=== PATIENT | female | born 1995 | race African-American/Black ===

== ENCOUNTER 2023-07-06 10:22 | Emergency (ER) | payer OTHER, SELFPAY ==
--- NOTE | ~2023-07-06 | XR_ITS ---
EXAMINATION: XR chest 2V 07/06/2023 12:18 INDICATION: Shortness of breath PROCEDURE: 2 view chest COMPARISON: No prior studies for comparison. FINDINGS: The lungs are clear. The cardiomediastinal silhouette is within normal limits. There are no pleural effusions. There is no pneumothorax suspected. IMPRESSION: 1: NO ACUTE CARDIOPULMONARY DISEASE. Reviewed, dictated and finalized at location L. MANAGER CPA
[2023-07-06 11:15] VITALS: BP 117/69; PULSE 85; RESP 18; TEMP 36.6; O2SAT 100
--- NOTE | 2023-07-06 11:21 | ECG_ITS ---
Measurements Intervals [place] Rate: 70 P: 57 NV: 122 QRS: -20 QRSD: 88 T: 34 QT: 393 QTc: 424 Interpretive Statements SINUS RHYTHM INCOMPLETE RIGHT BUNDLE BRANCH BLOCK BASELINE ARTIFACT- I, II, AVR, AVL, AVF, V3-V4, V6 BORDERLINE ECG NO PREVIOUS ECG AVAILABLE FOR COMPARISON Electronically Signed On 07-06-2023 12:54:35 LABOR GANG SUPERVISOR by Gilmer Cuba D.O.
--- NOTE | 2023-07-06 11:21 | ED.SOB ---
HPI - SOB/Dyspnea General Chief Complaint: Shortness of Breath/Dyspnea <Liz Burch PA-C - Last Filed: 07/07/23 14:59> Stated Complaint: diff breathing <Liz Burch PA-C - Last Filed: 07/07/23 14:59> Time Seen by Provider: 07/06/23 11:21 <Liz Burch PA-C - Last Filed: 07/07/23 14:59> Source: patient <Marsha Galan MD - Last Filed: 07/07/23 11:06> Mode of arrival: ambulatory <Marsha Galan MD - Last Filed: 07/07/23 11:06> Limitations: no limitations <Marsha Galan MD - Last Filed: 07/07/23 11:06> History of Present Illness HPI Narrative: Focused HPI: This is a 27-year-old female that presents to the emergency department for difficulty breathing. Ongoing over the last week. Associated with tightness in her chest. Denies fevers or cough. GENERAL: Well-appearing, well-nourished, and in no acute distress. HEAD: Normocephalic, atraumatic. CHEST: Clear to auscultation. No respiratory distress. HEART: Regular rate and rhythm. NEURO: Alert and oriented x3. Patient screened in triage and initial orders placed. Additional care and disposition to be based upon diagnostic testing and treatment. <Liz Burch PA-C - Last Filed: 07/07/23 14:59> Focused HPI: This is a 27-year-old female that presents to the emergency department for difficulty breathing. Ongoing over the last week. Associated with tightness in her chest. Denies fevers or cough. GENERAL: Well-appearing, well-nourished, and in no acute distress. HEAD: Normocephalic, atraumatic. CHEST: Clear to auscultation. No respiratory distress. HEART: Regular rate and rhythm. NEURO: Alert and oriented x3. Patient screened in triage and initial orders placed. Additional care and disposition to be based upon diagnostic testing and treatment. Concur with history obtained in triage by ESTEFANI. Patient states these episodes have been occuring intermittently daily for the past week. Last 30-45 minutes. Once occcurred in the middle of the night but otherwise has not found sensation between time of day or any other identifiable triggers as as they occur at rest times with mild exertion. Notes family hx asthma but no personal diagnosis. Nexplanon control. No leg swelling, recent travel. No cough or hemoptysis. No recent surgery or immobilization. Will occcasionally think she hears a wheeze when laughing but not otherwise. Today's episode occurred spontaneously and acutely while she was talking with someone at work. Denies feeling particularly anxious about the conversation but her CARROL led her to feel like she was having a panic attack which is why she presents today. Denies sore throat but does appreciate unilateral tonsillar swelling, present chronically for years. Also notes occasional mucosal bleeding (has had two episodes while brushing teeth). <Marsha Galan MD - Last Filed: 07/07/23 11:06> Review of Systems Review of Systems: CONSTITUTIONAL: Denies fever ENT: Denies rhinorrhea, congestion CARDIOVASCULAR: Denies chest pain RESPIRATORY: Reports dyspnea. PSYCHIATRIC: Reports anxiety <Liz Burch PA-C - Last Filed: 07/07/23 14:59> All systems reviewed & are unremarkable except as noted in HPI and below <Liz Burch PA-C - Last Filed: 07/07/23 14:59> [facility] Past Medical History Medical History: Medical History (Updated 07/07/23 @ 14:59 by Liz Burch PA-C) No active medical problems <Liz Burch PA-C - Last Filed: 07/07/23 14:59> Family History Family History: Family History (Updated 07/07/23 @ 11:00 by Marsha Galan MD) Father Asthma Grandparent Asthma <Liz Burch PA-C - Last Filed: 07/07/23 14:59> Social History Social History: Social History (Updated 07/07/23 @ 11:48 by Liz Burch PA-C) Substance use: never <Liz Burch PA-C - Last Filed: 07/07/23 14:59> Exam Const: General: healthy appearing, no
[2023-07-06 12:54] LABS: Basophils Percent Auto 0.7 % (0.2-1.2); Eosinophils Absolute Auto 0.1 K/mm3 (0-0.3); Eosinophils Percent Auto 1.3 % (0-4.4); Hematocrit 38.7 % (37.0-47.0); Hemoglobin 12.2 g/dL (12.0-15.0); Immature Granulocyte Absolute 0.01 K/mm3 (0.00-0.031); Immature Granulocyte Percent A 0.2 % (0-0.5); Lymphocytes Absolute Auto 1.87 K/mm3 (0.9-3.2); Mean Corpuscular HGB Conc 31.5 g/dl (32-36); Mean Corpuscular Hemoglobin 27.5 pg (26-34); Mean Corpuscular Volume 87.4 fl (80-100); Mean Platelet Volume 8.3 fl (7.4-10.4); Monocytes Absolute Auto 0.4 K/mm3 (0.1-0.6); Monocytes Percent Auto 9.4 % (2.6-8.5); Neutrophils Absolute Auto 2.2 K/mm3 (1.3-6.7); Neutrophils Percent Auto 47.4 % (45.5-73.1); Platelet Count Result 332 k/mm3 (150-375); Red Blood Count 4.43 M/mm3 (4.2-5.4); Red Cell Distribution Width 11.9 % (11.5-14.5); White Blood Count 4.6 K/mm3 (4.5-10.0)
[2023-07-06 13:04] LABS: Prothrombin Time 13.9 Seconds (11.1-14.7)
[2023-07-06 13:05] LABS: Alanine Aminotransferase 17 U/L (6-35); Albumin Level 4.7 g/dL (3.5-5.1); Alkaline Phosphatase 75 U/L (38-126); Anion Gap 9 mmol/L (8-16); Aspartate Amino Transferase 28 U/L (14-36); Bilirubin,Total 1.1 mg/dL (0.2-1.3); Blood Urea Nitrogen 11 mg/dL (7-17); Calcium 9.5 mg/dL (8.4-10.2); Carbon Dioxide 25 mmol/L (22-30); Chloride 105 mmol/L (98-107); Estimated CRCL calculation 101 ml/min; Estimated Glomerular Filt Rate > 60; Glucose 88 mg/dL (65-110); Lipase 79 U/L (23-300); Partial Thromboplastin Time 27.3 SECONDS (22.3-36.8); Potassium 3.6 mmol/L (3.4-5.0); Sodium 139 mmol/L (137-145)
[2023-07-06 13:17] LABS: Troponin I < 0.012 ng/mL (0.000-0.034)
[2023-07-06 14:03] VITALS: BP 114/73; PULSE 74; RESP 16; TEMP 36.4; O2SAT 95
[2023-07-06 15:33] LABS: D Dimer 0.28 ug/mL (<0.48)
[2023-07-06 15:37] LABS: Influenza A QL RT-PCR Negative (Negative); Influenza B QL RT-PCR Negative (Negative); RSV RNA, RT-PCR Negative (Negative); SARS-CoV-2 RNA PCR Negative (Negative)
== END 2023-07-06 16:39 | disposition home or self-care (01) ==
PROVIDERS: Physician Assistant; Emergency Provider Student in an Organized Health Care Education/Training Program
DX: R06.00 Dyspnea, unspecified (principal); Z20.822 Contact with and (suspected) exposure to COVID-19; I45.10 Unspecified right bundle-branch block
CPT/HCPCS: 36415; 71046; 80053; 83690; 84484; 85025; 85380; 85610; 85730; 87637; 93005; 99284

== ENCOUNTER 2024-05-28 13:04 | Emergency (ER) | payer SELFPAY ==
[2024-05-28 13:12] VITALS: BP 121/75; PULSE 65; RESP 20; TEMP 36.6; O2SAT 100
--- NOTE | 2024-05-28 15:30 | ED_ITS ---
HPI - Skin/Abscess/Foreign Bdy General Chief complaint: Skin/Abscess/Foreign Body Stated complaint: bumps on my neck that appear once a year Time Seen by Provider: 05/28/24 14:30 History of Present Illness HPI narrative: Patient is a 28-year-old female who presents to the ER with the hives her left neck. She reports lesion number been going on for approximately 2 years. The spots started yesterday. She reports the spots are itchy but not painful. Patient cannot identify any new detergents, lotions, soaps. She denies any recent fevers, shortness of breath, neck swelling. Patient denies any pertinent medical history related to this ER visit. Related Data Allergies Allergy/AdvReac Type Severity Reaction Status Date / Time No Known Allergies Allergy Verified 05/28/24 14:31 Review of Systems Review of Systems: All systems reviewed & are unremarkable except as noted in HPI and below PMFSH Past Medical History Medical History No active medical problems Family History Family History Father Asthma Grandparent Asthma Social History Social History Substance use: never Exam Narrative: GENERAL: Well appearing, well-nourished, non-toxic, in no acute distress. HEAD: Normocephalic, atraumatic. NECK: Supple. No adenopathy, no masses. Four small hives on pt's L neck that have pinpoint raised lesions. RESPIRATORY: Airway patent, respirations nonlabored. Clear to auscultation bilaterally, no rales, rhonchi, wheezing. CARDIOVASCULAR: Regular rate and rhythm without murmurs, rubs, or gallops. Peripheral pulses 2+ and equal bilaterally. ABDOMINAL: Soft, nontender, nondistended, no hepatosplenomegaly. Normoactive BS. MUSCULOSKELETAL: Moves all extremities. Strength/ROM intact without gross deformities. SKIN: Warm, dry, normal color. No rashes. NEURO: A&O X3. Speech clear. Cranial nerves II-XII grossly intact. Steady gait. No ataxic movements. PSYCHIATRIC: Appropriate mood and affect. Normal interaction. Course Vital Signs Vital signs: Vital Signs Temperature 36.6 C 05/28/24 13:12 Pulse Rate 65 05/28/24 13:12 Respiratory Rate 20 05/28/24 13:12 Blood Pressure 121/75 05/28/24 13:12 Pulse Oximetry 100 05/28/24 13:12 Oxygen Delivery Room Air 05/28/24 13:12 Temperature 36.6 C 05/28/24 13:12 Pulse Rate 65 05/28/24 13:12 Respiratory Rate 20 05/28/24 13:12 Blood Pressure 121/75 05/28/24 13:12 Pulse Oximetry 100 05/28/24 13:12 Oxygen Delivery Room Air 05/28/24 13:12 MDM - Skin/Abscess/Foreign Bdy MDM Narrative Medical decision making narrative: Patient is a 28-year-old female who presents to the ER with the hives her left neck. She reports lesion number been going on for approximately 2 years. The spots started yesterday. She reports the spots are itchy but not painful. Patient cannot identify any new detergents, lotions, soaps. She denies any recent fevers, shortness of breath, neck swelling. Patient denies any pertinent medical history related to this ER visit. Labs Ordered: None needed Imaging Ordered:None needed Results: Hives Diagnosis: Urticaria Patient Education/Shared MDM: Results of exam shared with patient. She will be given an oral steroid and oral Benadryl here in the ER. Patient will be discharged with a Medrol Dosepak and hydrocortisone cream. She was advised to follow-up with her primary care provider as soon as possible and an telecom specialist. Patient advised to return to ER immediately if she starts experiencing shortness of breath, wheezing, neck swelling. Patient is in agreement with current treatment plan. All questions answered. Vital signs stable at time of discharge. Differential Diagnosis Differential diagnosis: Likely viral exanthem, urticaria, cellulitis, eczema and contact dermatitis Discharge Plan Discharge Clinical Impression: Urticaria Patient Disposition: Home, Self-Care Condition: Stable Instructions: Antibiotic Form, Urticaria (ED) Additional Instructions: Please return to the ER with an worsening symptoms. Follow-up with primary care provider in the next 2-3 days. Take all medications as prescribed. Patient Language: [place] Citizen Follow-up/Referrals: PHYSICIAN,FURNITURE DUSTER [Primary Care Provider] -
[2024-05-28] MEDS: predniSONE 20 MG TABLET 40 MG PO (15:38)
[2024-05-28 15:39] VITALS: BP 107/68; PULSE 63; RESP 15; O2SAT 98
[2024-05-28] MEDS: diphenhydrAMINE HCl CAP 25 MG CAPSULE PO (15:39)
--- OUTSIDE RECORDS SUMMARY | 2024-06-02 06:09 | XMS_ITS | Encounter Summary ---
Author Organization [facility] Address [address] [place] [address]. [place] [address] [place] [address] Care Team Providers Care Collar Baster Jumpbasting Name Role Phone None, Provider Primary Care Provider Obinna graham Encounter Details Date Type Department Care Team (Late st Contact Info) Description 12/04/2018 Hospital Follow-up Call [facility] [place], [place] [id number] Crystal Blue RN Social History Tobacco Use Types Packs/Day Years Used Date Smoking Tobacco: Never Smokeless Tobacco: Never Alcohol Use Standard Drinks/Week Comments No 0 (1 standard drink = 0.6 oz pur e alcohol) AUDIT-C Answer Date Recorded Frequency of Alcohol Consumption Never 06/08/2018 Average Number of Drinks Not on file 018 Frequency of Binge Drinking Not on file 05/15 Comments No Sex and Gender Information Value Date Recorded Sex Assigned at Not on file 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 Answer Date of Assessment Author Status No 11/13/2018 11:55 PM CDT Acti ve * Do you have serious difficulty walking or climbing stairs? Answer Date of Assessment Author Status No 11/13/2018 11:55 PM BENNETTT Mónica Nicole RN Active * Do you have difficulty dressing or bathing? Answer Date of Assessment Author Status No 11/13/2018 11:55 PM Mónica Terry RN Active * Because of a physical, mental, or emotional condition, do you have difficulty doing errands alone such as visiting a doctor's office or shopping? Answer Date of Assessment Author Status No 11/13/2018 11:55 PM Mónica Terry RN Active documented as of this encounter Mental Status * Because of a physical, mental, or emotional condition, do you have serious difficulty concentrating, remembering, or making decisions? Answer Entry Date Author Status No 11/13/2018 11:55 PM Mónica Terry RN Active documented in this encounter Plan of Treatment Not on file documented as of this encounter Visit Diagnoses Not on filedocumented in this encounter Care Teams Collar Baster Jumpbasting Relationship Specialty Start Date End Date None, Provider, PCP - General 06/08/18 documented as of this encounter
--- OUTSIDE RECORDS SUMMARY | 2024-06-02 06:09 | XMS_ITS | Clinical Summary ---
Author Organization [facility] Address [address] [place] [address]. [place] [address] [place] [address] Care Team Providers Care Structural Steel Worker Helper Name Role Phone None, Provider MD Primary Care Provider Unavaila ble Allergies No known active allergies Medications vitamin, low iron, ( VITAMIN WITH IRON) 27-0.8 MG tablet Take 1 tablet by mouth daily. Active ferrous sulfate EC 324 (65 Fe) MG tablet Take 1 tablet (324 mg total) by mouth 2 (two) times daily with meals. 60 tablet 2 11/16/2018 Active methylergonovine (METHERGINE) 0.2 MG tablet Take 1 tablet (0.2 mg total) by mouth every 6 (six) hours. 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 Gender Identity Not on file Sexual Orientation Not on file Last Filed Vital Signs Vital Sign Reading Time Taken Comments Blood Pressure 100/58 12/21/2018 5:40 PM CDT Pulse 63 12/21/2018 5:40 PM CDT Temperature 36.6 ??C (97.8 ??F) 12/21/2018 11:52 AM C DT Respiratory Rate 20 12/21/2018 5:40 PM CDT Oxygen Saturation 99% 12/21/2018 5:40 PM CDT Inhaled Oxygen Concentration - - Weight 49.9 kg (110 lb) 12/21/2018 11:52 AM CDT Height 157.5 cm (5' 2 ) 12/21/2018 11:52 AM CDT Body Mass Index 20.12 12/21/2018 11:52 AM CDT Plan of Treatment Health Maintenance Due Date Last Done Comments Cervical Cancer Screening Pa p Smear (Age 21 to 29) Every 3 Years 1997 Cervical Cancer Screening 1997 Annual Physical 2000 HPV Vaccines (1 - 3-dose series) 2012 Hepatitis C 10/19/2015 Hepatitis B Vaccines (1 of 3 - 19+ 3-dose series) 2016 COVID-19 Vaccine ( - 2023-2 5 season) 2024 Influenza Adult (#1) 2024 DTaP, Tdap and Td Vaccines ( 2 - Td or Tdap) 09/27/2027 09/26/2017 Meningococcal Vaccine Aged Out No tasha jocy eligible based on patient's age to complete this topic Pneumococcal Vaccine: Pediat rics (0 to 5 Years) and At-Risk Patients (6 to 64 Years) Aged Out No longer eligi ble based on patient's age to complete this topic RSV Immunizations Under 20 Months Aged Out No longer eligible based on patient's age to complete this topic Insurance Care Teams Structural Steel Worker Helper Relationship Specialty Start Date End Date None, Provider, PCP - General 06/08/18
--- OUTSIDE RECORDS SUMMARY | 2024-06-02 06:09 | XMS_ITS | Encounter Summary ---
Author Organization [facility] Address [address] [place] [address]. [place] [address] [place] [address] Care Team Providers Care Restaurant Lead Name Role Phone None, Provider MD Primary Care Provider Unavaila ble Reason for Visit * Auth/Cert Specialty Diagnoses / Procedures Referred By Dakota salazar Referred To Contact Diagnoses Procedures INPT Referral ID Status Reason Start Date Expiration Date Visits Re quested Visits Authorized [id number] 1 1 Encounter Details Date Type Department Care Team (Late Contact Info) Description 11/14/2018 2:12 AM CDT Anesthesia Event [facility] Labor & Delivery ONE [facility] [place] [address] Matt Dorsey CRNA [address] [facility] [address] [address] Anesthesia Record Procedure Summary Procedure Name Responsible Anesthesiologist Anesthesia Start Time Anesthesia Stop Time LABOR EPIDURAL Events Date Time Event Comment 11/14/2018 0213 0213 AN AQUATIC PERFORMER Prepped 0219 Floor Procedure 022 Epidural Start 618 An Epidural Placement Comple te Meds Name Total lidocaine (PF) 1% injection 30 mg lidocaine 2%-EPINEPHrine 1:200,000 injec tion 3 mL fentaNYL (SUBLIMAZE) 100 mcg/2 mL inject ion 100 mcg fentaNYL 2 mcg/mL-BUpivacaine 0.125 % ep idural 150 mL cassette 583,818.73 mL * Agents No agents on file. * Blood No blood administrations on file. 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 Gender Identity Not on file Sexual Orientation [...] PM BENNETTT Mónica Nicole RN Active * Because of a physical, [...] Terry RN Active documented in this encounter OR Notes * Anesthesia Postprocedure Evaluation - Greta Hodgson CRNA - 11/15/2018 8:28 AM CDT Anesthesia Post-op Note Socorro N Su Procedure(s): LABOR EPIDURAL Anesthesia type: epidural Vitals: 11/15/18745 BP: 98/56 Vitals: 11/15/18745 Pulse: 72 Vitals: 11/15/18745 Resp: 16 Vitals: 11/15/18745 Temp: 36.7 ??C Vitals: 11/15/18745 SpO2: 98% Patient Location: Inpatient Unit Level of Consciousness: awake, oriented and alert Pain Management: adequate analgesia Airway Patency: patent Respiratory Status: acceptable Cardiovascular Status: acceptable and stable Post-Op Nausea: none Postoperative Hydration: euvolemic Complications: no anesthesia complication Comments: Blood pressure 98/56, pulse 72, temperature 36.7 ??C, temperature source Oral, resp. rate16, height 5' 2 (1.575 m), weight 61.2 kg (135 lb), SpO2 98 %, unknown if currently . * Anesthesia Procedure Notes - Matt Dorsey CRNA - 11/14/2018 2:41 AM CDTAssociated Order(s): Labor Epidural Epidural: Date/Time: 11/14/2018 2:22 AM Patient location during procedure: OB Reason for block: procedure for pain and labor epidural Preanesthetic Checklist Completed: patient identified, consent, pre-op evaluation, timeout performed, IV checked, risks andbenefits discussed and monitors and equipment checked Procedure Information: Patient position: sitting Prep: Betadine and site prepped and draped Patient monitoring: continuous pulse oximetry, heart rate and non-invasive blood pressure Approach: midline Location: L3-L4 Injection technique: NELSON saline Placement Location: lumbar Ultrasound-guided Placement: No Needle and Catheter: MRI Compatible: B Castrejon Perifix tray Ref # [id number] Needle type: Tuohy Needle gauge: 17 G Needle length: 3.5 in Needle insertion depth: 5.5 cm Catheter type: side hole Catheter size: 19 G Catheter at skin depth: 11 cm Test dose: negative and lidocaine 1.5% with epinephrine 1-to-200,000 Needle attempts: 1 Assessment Sensory level: T8 Additional Notes Epidural placed as above, pt tolerated well. * Anesthesia Preprocedure Evaluation - Matt Dorsey CRNA - 11/14/2018 2:13 AM CDT Anesthesia ROS/MED History Reviewed: Patient summary , Nursing notes , Family history anesthesia, Anesthesia history , Medications , Labs , Unchecked boxes are not applicable Pre-Anesthetic State: responds appropriately, awake and alert Pulmonary neg pulmonary ROS Cardiovascular neg cardio ROS Exercise tolerance:good Neuro/Psych neg neuro/psych ROS GI/Hepatic/Renal neg GI/hepatic/renal ROS Endo/Other neg endo/other ROS GENERAL COMMENTS WBC (x10'3/uL) Date Value 11/13/2018 9.9 HGB (G/DL) Date Value 11/13/2018 10.9 PLT (x10'3/uL) Date Value 11/13/2018 327 Physical Evaluation Airway Mallampati: II TM Distance: >3 FB Neck ROM: normal Dental No notable dental history Pulmonary Pulmonary exam normal Cardiovascular Cardiovascular exam normal Anesthesia Plan ASA 2 Induction Anesthesia type: epidural Informed Consent Anesthetic plan and risks discussed with patient of whom consent was obtained. . documented in this encounter Plan of Treatment Not on file documented as of this encounter Procedures Procedure Name Priority Date/Time Associated Diagnosis Comments LABOR EPIDURAL Routine 11/14/2018 2:41 AM CDT Procedure Note - Matt Dorsey CRNA - 11/14/2018 2:41 AM CDTThis note is in progress. Epidural: Date/Time: 11/14/2018 2:22 AM Patient location during procedure: OB Reason for block: procedure for pain and labor epidural Preanesthetic Checklist Completed: patient identified, consent, pre-op evaluation, timeoutperformed, IV checked, risks and benefits discussed and monitors andequipment checked Procedure Information: Patient position: sitting Prep: Betadine and site prepped and draped Patient monitoring: continuous pulse oximetry, heart rate and non-invasiveblood pressure Approach: midline Location: L3-L4 Injection technique: NELSON saline Placement Location: lumbar Ultrasound-guided Placement: No Needle and Catheter: MRI Compatible: B Castrejon Perifix tray Ref # [id number] Needle type: Tuohy Needle gauge: 17 G Needle length: 3.5 in Needle insertion depth: 5.5 cm Catheter type: side hole Catheter size: 19 G Catheter at skin depth: 11 cm Test dose: negative and lidocaine 1.5% with epinephrine 1-to-200,000 Needle attempts: 1 Assessment Sensory level: T8 Additional Notes Epidural placed as above, pt tolerated well. documented in this encounter Visit Diagnoses Not on filedocumented in this encounter Administered Medications Inactive Administered Medications - up to 3 most recent administrations Medication Order MAR Action Action Date Dose Rate Site fentaNYL (SUBLIMAZE) injection PRN, Starting on Wed11/14/18 at 0232, Until Wed11/15/18 at 08, Anesthesia Intra-Op Given 11/14/2018 2:32 AM CDT 100 mcg fentaNYL 2 mcg/mL-bupivacaine 0.125 % 150 mL epidural Continuous PRN, Starting on Wed11/14/18 at 0235, Until Wed11/15/18 at 0829, Anesthesia Intra-Op Rate/Dose Change 11/14/2018 2:36 AM CDT 12 mL/hr 12 mL/hr New Bag 11/14/2018 2:35 AM CDT 5 mL/hr 5 mL/hr lidocaine (PF) (XYLOCAINE) 1 % injection PRN, Starting on Wed11/14/18 at 0224, Until Wed11/15/18 at 0829, Anesthesia Intra-Op Given 11/14/2018 2:24 AM CDT 30 mg lidocaine-EPINEPHrine 2 %-[id number] injection PRN, Starting on Wed11/14/18 at 0229, Until Wed11/15/18 at 0829, Anesthesia Intra-Op Given 11/14/2018 2:29 AM CDT 3 mLs documented in this encounter Care Teams Restaurant Lead Relationship Specialty Start Date End Date None, Provider, PCP - General 06/08/18 documented as of this encounter
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
--- OUTSIDE RECORDS SUMMARY | 2024-06-02 06:09 | XMS_ITS | Encounter Summary ---
Author Organization [facility] Address [address] [place] [address]. 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 Name Role Phone None, Provider Primary Care Provider Unavaila ble Reason for Visit * Reason Comments IOL-ELECTIVE * Auth/Cert Specialty Diagnoses / Procedures Referred By Dakota t Referred To Contact Diagnoses Procedures INPT Referral ID Status Reason Start Date Expiration Date Visits Re quested Visits Authorized [id number] 1 1 Encounter Details Date Type Department Care Team (Latest Contact Info) Description 11/13/2018 10:05 PM CDT - 11/16/2018 11:45 AM CDT Hospital Encounter [facility] [place], [place] [id number] Alexis Theodore MD [address] [place], [place] [id number] (IOL-ELECTIVE) Discharge Disposition: Home or Self Care (Routine [...] on file 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 Gender Identity Not on file Sexual Orientation Not on file documented as of this encounter Last Filed Vital Signs Vital Sign Reading Time Taken Comments Blood Pressure 100/64 11/16/2018 8:00 AM CDT Pulse 80 11/16/2018 8:00 AM CDT Temperature 37 ??C (98.6 ??F) 11/16/2018 8:00 AM CDT Respiratory Rate 18 11/16/2018 8:00 AM CDT Oxygen Saturation 98% 11/16/2018 8:00 AM CDT Inhaled Oxygen Concentration - - Weight 61.2 kg (135 lb) 11/13/2018 11:13 PM CDT Height 157.5 cm (5' 2 ) 11/13/2018 11:13 PM CDT Body Mass Index 24.69 11/13/2018 11:13 PM CDT documented in this encounter Functional Status * Question Answer Date of Assessment Author Status Do you have serious difficulty walking or climbing stairs? No 11/13/2018 11:55 PM Mónica Terry RN Active * Question Answer Date of Assessment Author Status Do you have difficulty dressing or bathing? No 11/13/2018 11:55 PM BENNETTT Jillian Nicole RN Active Because of a physical, mental, or emotional condition, do you have difficulty doing errands alone such as visiting a doctor's office or shopping? No 11/13/2018 11:55 PM Mónica Terry RN Active * RETIRED Are you deaf or do [...] 11:55 PM Mónica Terry RN Active * Do you have difficulty [...] as of this encounter Mental Status * Question Answer Entry Date Author Status Because of a physical, mental, or emotional condition, do you have serious difficulty concentrating, remembering, or making decisions? No 11/13/2018 11:55 PM Mónica Terry RN Active * Because of a physical, mental, or emotional condition, do you have serious difficulty concentrating, remembering, or making decisions? Answer Entry Date Author Status No 11/13/2018 11:55 PM Mónica Terry RN Active documented in this encounter Discharge Summaries * Maxine Caballero CNM - 11/16/2018 8:19 AM CDT Obstetrical Discharge Form Admit date: 11/13/2018 Admitting Physician: Alexis Theodore MD Indication for Admission: Patient was admitted for spontaneous labor. /Para: EDC: Estimated Date of Delivery: 11/15/18 Gestational Age:39w6d Antepartum complications: none Date of Delivery: 11/14/18 Time of Delivery: 618 Delivered By: Dr. Alexis Theodore Delivery Type: spontaneous vaginal delivery Anesthesia: epidural Intrapartum complications: None Laceration: 1st degree and 2nd degree Episiotomy: none, Placenta: spontaneous Hospital Course: Her postop course was uncomplicated. By PPD# 2 she was fully ambulatory, voiding without difficulty and her pain was controlled on po pain meds. She felt ready for discharge. Routinepo/pp precautions and instructions were reviewed and all questions answered to her satisfaction. Discharge Exam: Lungs: no respiratory distress Heart: RRR Abdomen: Tenderness:mild,Fundus: firm, 1 cm below umbilicus Extremities: nontender, no edema, Nina's sign: negative Perineum: Swelling: minimal, Sutures: intact Labs: Recent Labs Lab 11/13/18 2240 11/15/18 0436 WBC 9.9 12.8* HGB 10.9* 9.1* PLT 327 255 No results for input(s): K, CR, GLU, AST, ALT in the last 168 hours. Feeding method: bottle Blood Type: AB POSITIVE Rh Immune globulin given: not applicable Rubella vaccine given: not applicable Discharge Diagnoses: s/p spontaneous vaginal delivery Discharge Condition: Stable Discharge Date: 11/16/2018 Discharge Time: 8:19 AM Discharge Provider: MAXINE CABALLERO CNM Assessment/Plan: S/p spontaneous vaginal delivery. Discharge to home with . Follow-up appointment in 6 weeks. Instructed to return with heavy bleeding, severe pain, or fever. Discharge Meds: Medication List START taking these medications docusate sodium 100 MG capsule Commonly known as: COLACE Take 1 capsule (100 mg total) by mouth 2 (two) times daily for 10 days. ferrous sulfate EC 324 (65 Fe) MG tablet Take 1 tablet (324 mg total) by mouth 2 (two) times daily with meals. ibuprofen 600 MG tablet Commonly known as: MOTRIN Take 1 tablet (600 mg total) by mouth every 6 (six) hours as needed. CONTINUE taking these medications vitamin with iron 27-0.8 MG tablet Where to Get Your Medications These medications were sent to [facility] [address] [place] [address], [facility] [address] ?? docusate sodium 100 MG capsule ?? ferrous sulfate EC 324 (65 Fe) MG tablet ?? ibuprofen 600 MG tablet MAXINE CABALLERO CNM documented in this encounter Discharge Instructions * Attachments The following attachments cannot be sent through Care Everywhere. * Vaginal Delivery Discharge Instructions (Canadian) * What to Watch for After You Have a Baby (Canadian) documented in this encounter Medications at Time of Discharge ferrous sulfate EC 324 (65 Fe) MG tablet Take 1 tablet (324 mg total) by mouth 2 (two) times daily with meals. 60 tablet 2 11/16/2018 vitamin, low iron, ( VITAMIN WITH IRON) 27-0.8 MG tablet Take 1 tablet by mouth daily. docusate sodium 100 MG capsule Take 1 capsule (100 mg total) by mouth 2 (two) times daily for 10 days. 20 capsule 11/16/2018 11/26/2018 ibuprofen 600 MG tablet Take 1 tablet (600 mg total) by mouth every 6 (six) hours as needed. 40 tablet 11/16/2018 11/26/2018 documented as of this encounter Progress Notes * Vin Downs MD - 11/15/2018 8:40 AM CDT Subjective: Patient is doing well. Pain well controlled on PO meds. Ambulating and voiding well. Normal lochia.Switched from to bottle feeding, infant is doing well, denies any concerns at this time. Objective: Filed Vitals: 11/14/18 1000 11/14/18 1015 11/14/18 1905 11/15/18 0746 BP: 104/61 101/62 98/56 Pulse: 88 80 72 Resp: 18 16 16 Temp: 98.2 ??F (36.8 ??C) 98.2 ??F (36.8 ??C) 98 ??F (36.7 ??C) TempSrc: Oral Oral Oral SpO2: 97% 98% Weight: Height: No intake or output data in the 24 hours ending 11/15/18 0841 Lungs: no respiratory distress Heart: RRR Abdomen: Tenderness:mild,Fundus: firm, 1 cm below umbilicus Extremities: nontender, no edema, Nina's sign: negative Perineum: Swelling: minimal, Sutures: intact Recent Labs Lab 11/13/18 2240 11/15/18 0436 HGB 10.9* 9.1* No results for input(s): NA, K, CL, CO2, AGAP, BUN, CR, BUNCREATININ, GFRNON, GFR, GLU, CA, TP, ALB, TBIL, ALKP, AST, ALT in the last 168 hours. A/P: PPD# 1 s/p vaginal delivery. Stable Routine care Anemia- started on ferrous sulfate Reviewed delivery course and answered questions. Precautions reviewed re: headache, bleeding, depression, etc. Anticipate discharge tomorrow agree * Rosario Sheehan RN - 11/14/2018 2:35 PM CDT 1435- CLC IN FOR ROUNDS. MOTHER STATES SHE DESIRES TO FORMULA FEED INFANT INSTEAD OF . STATES ONLY WANTED TO GIVE INFANT A LITTLE COLOSTRUM AND THEN BOTTLE FEED. 1455- BOTTLES AND NIPPLES GIVEN WITH INSTRUCTION ON USE.1500- MOTHER HOLDING AND BOTTLEFEEDING documented in this encounter H&P Notes * Alexis Theodore MD - 11/13/2018 12:00 AM CDT CHIEF COMPLAINT: Term , contractions. HISTORY OF PRESENT ILLNESS: The patient is a 23-year-old G1 [facility] and presents with complaints of cramping and contractions. She is at 39 weeks. She has anAV positive blood type. Her care was uneventful. Her 28-week 1-hour glucose screen was 103. There was an echogenic intracardiac focus on one of her ultrasounds, but her QNatal test was low risk. PAST MEDICAL HISTORY: No previous history of diabetes or hypertension. ALLERGIES: NO KNOWN DRUG ALLERGIES. MEDICATIONS: Vitamins. PAST SURGICAL HISTORY: None. FAMILY HISTORY: Noncontributory. PHYSICAL EXAMINATION: Normocephalic, atraumatic. Vital signs stable. Chest: Clear to auscultation. Cardiovascular: Regular rate and rhythm without murmur. Abdomen: Soft, gravid, nontender. Lower extremities are nontender. Trace edema. Cervical exam upon initial presentation 3-4 cm dilated. IMPRESSION: Intrauterine at 39 weeks, appears to be going into labor. We will allow laterto progress and hope for vaginal delivery. #[id number] /NTS documented in this encounter Procedure Notes * Alexis Theodore MD - 11/14/2018 12:00 AM CDT The patient is a 23-year-old G1, now P1, who presented with term induction at 39 weeks. [facility] [place] [facility] at approximately 10:00 p.m. on 11/13 and was already found to be contraction. Therefore, no induction was performed. No Pitocin was given. No Cytotec was given. The patient was expectantly managed. Upon initial arrival, she was 3-4 cm dilated. She then continued overnight. She continued to make progress in labor. She had spontaneous rupture of membranes at 1:35 a.m. She then ultimately dilated to complete and started pushing efforts at 5:45 a.m. With me in attendance, she brought the baby's head to her crown and delivered by normal spontaneous vertex vaginal delivery of a viable male infant with good tone and cry at the time of delivery with delivery time at 6:19 a.m. Following delivery of the head, a loose nuchal cord was present. This was easily reduced. Each shoulder came easily and no shoulder dystocia was encountered. The baby was wiped off. The mouth was suctioned. One minute was allowed to pass. The cord was then clamped x2 and cut by relative. Routine cord blood was obtained. Cord blood gases were obtained. The cord was then drained the bladder and with gentle traction, the placenta was delivered with all membranes intact. The uterus firmedup nicely following delivery. I should note that the patient did receive 2 doses of Penicillin durin g her labor due to positive group B strep status. Inspection of the perineum showed 2 first-degree lacerations at 10 and 2 o'clock. These were each reapproximated using a 3-0 Vicryl Rapide sutures interrupted. A thin small second-degree laceration was present at 05:00. This was reapproximated in a s tandard fashion in 2 layers with 2-0 Vicryl Rapide. Mother and baby following delivery doing well. Estimated blood loss in delivery 300 mL. #[id number] /NTS documented in this encounter Plan of Treatment Not on file documented as of this encounter Procedures Procedure Name Priority Date/Time Associated Diagnosis Comments CBC W/DIFF AUTOMATED Routine 11/15/2018 4:36 AM CDT TYPE & SCREEN STAT 11/13/2018 10:42 PM CDT CBC W/DIFF AUTOMATED STAT 11/13/2018 10:40 PM CDT URINALYSIS WI REFLEX TO CULTURE Routine 11/13/2018 10:30 PM CDT DRUG SCREEN RAPID STAT 11/13/2018 10: 30 PM CDT URINE BACTERIA CULTURE Routine 11/13/2018 10:30 PM CDT OBSTETRIC PANEL Routine 11/13/2018 HIV 1 ANTIGEN(S), WITH HIV-1 AND HIV-2 ANTIBODIES Routine 08/24/2018 OBSTETRIC PANEL Routine 08/24/2018 HIV 1 ANTIGEN(S), WITH HIV-1 AND HIV-2 ANTIBODIES Routine 05/11/2018 OBSTETRIC PANEL Routine 05/11/2018 documented in this encounter Results * (ABNORMAL) CBC W/DIFF AUTOMATED (11/15/2018 4:36 AM CDT) WBC 12.8(H) 4.5 - 11.0 x10'3/uL 11/15/2018 6:41 AM CDT [facility] RBC 3.29(L) 4.20 - 5.40 x10'6/uL 11/15/2018 6:41 AM CDT [facility] HGB 9.1(L) 12.0 - 16.0 G/DL 11/15/2018 6:41 AM CDT [facility] HCT 29.4(L) 38.0 - 48.0 % 11/15/2018 6:41 AM CDT [facility] MCV 89.4 80.0 - 94.0 FL 11/15/2018 6:41 AM CDT [facility] MCH 27.7 27.0 - 31.0 PG 11/15/2018 6:41 AM CDT [facility] MCHC 31.0(L) 32.0 - 36.0 G/DL 11/15/2018 6:41 AM CDT [facility] RDW 13.2 11.5 - 14.5 % 11/15/2018 6:41 AM CDT [facility] PLT 255 130 - 400 x10'3/uL 11/15/2018 6:41 AM T [facility] MPV 9.0(L) 9.3 - 12.2 FL 11/15/2018 6:41 AM T [facility] DIFFERENTIAL TYPE MANUAL DIFFERENTIAL 11/15/2018 7:57 AM CDT [facility] SEG NEUTROPHILS 70 % 9 7:57 AM CDT [facility] LYMPHOCYTES 17 % 11/15/2018 7:57 AM T [facility] MONOCYTES 8 % 11/15/2018 7:57 AM T [facility] EOSINOPHILS 3 % 11/15/2018 7:57 AM CDT [facility] BANDS 1 % 11/15/2018 7:57 AM CDT [facility] MYELOCYTES 1 % 11/15/2018 7:57 AM T [facility] ABS. NEUTROPHILS CALCULATED 9.09(H) 1.80 - 7.70 x10'3/uL 11/15/2018 7:57 AM T [facility] ABS.LYMPHOCYTES CALCULATED 2.18 1.00 - 4.80 x10'3/uL 11/15/2018 7:57 AM CDT [facility] ABS. MONOCYTES CALCULATED 1.02(H) 0.24 - 0.86 x10'3/uL 11/15/2018 7:57 AM CDT [facility] ABS. EOSINOPHIL CALCULATED 0.38(H) 0.04 - 0.36 x10'3/uL 11/15/2018 7:57 AM T [facility] ABS. MYELOCYTES 0.13(H) 0.00 x10'3/uL 11/15/2018 7:57 AM CDT [facility] RBC MORPHOLOGY RBC MORPHOLOGY APPEARS NORMAL. SLIDE REVIEWED. 11/15/2018 7:57 AM CDT [facility] PLT EST. ADEQUATE 11/15/2018 7:57 AM CDT [facility] 11/15/2018 4:36 AM CDT us Alexis Theodore MD LABORATORY Final Result Performing Organization Address [facility] Co de Phone Number [facility] [address] [place] [address], [place] [phone] * TYPE & SCREEN (11/13/2018 10:42 PM CDT) ABO/RH AB POSITIVE 11/13/2018 11:56 PM CDT [facility] ANTIBODY SCREEN NEGATIVE 11/13/2018 11:56 PM CDT [facility] SAMPLE EXPIRATION 11/16/2018 11/13/2018 11:56 PM CDT [facility] 11/13/2018 10:4 2 PM CDT us Alexis Theodore MD BLOOD BANK TEST ORDERABLES Fi nal Result Performing Organization Address City/[facility]/ZIP Co de Phone Number [facility] [address] [place] [address], [place] [phone] * (ABNORMAL) CBC W/DIFF AUTOMATED (11/13/2018 10:40 PM CDT) WBC 9.9 4.5 - 11.0 x10'3/uL 11/13/2018 11:04 PM CDT [facility] RBC 3.85(L) 4.20 - 5.40 x10'6/uL 11/13/2018 11:04 PM CDT [facility] HGB 10.9(L) 12.0 - 16.0 G/DL 11/13/2018 11:04 PM CDT [facility] HCT 33.9(L) 38.0 - 48.0 % 11/13/2018 11:04 PM CDT [facility] MCV 88.1 81.0 - 99.0 FL 11/13/2018 11:04 PM CDT [facility] MCH 28.3 27.0 - 31.0 PG 11/13/2018 11:04 PM CDT [facility] MCHC 32.2 32.0 - 36.0 G/DL 11/13/2018 11:04 PM CDT [facility] RDW 13.1 11.5 - 14.5 % 11/13/2018 11:04 PM CDT [facility] PLT 327 130 - 400 x10'3/uL 11/13/2018 11:04 PM CDT [facility] MPV 8.8(L) 9.3 - 12.2 FL 11/13/2018 11:04 PM CDT [facility] DIFFERENTIAL TYPE AUTOMATED DIFFERENTIAL 11/13/2018 11:04 PM CDT [facility] NEUTROPHILS % 63.6 % 11/13/2018 11:04 PM CDT [facility] LYMPHOCYTES % 18.6 % 11/13/2018 11:04 PM CDT [facility] MONOCYTES % 13.1 % 11/13/2018 11:04 PM CDT [facility] EOSINOPHILS 0.5 % 11/13/2018 11:04 PM CDT [facility] BASOPHILS 0.5 % 11/13/2018 11:04 PM CDT [facility] IMMATURE GRANS % 3.7 % 11/14/19 11:04 PM CDT [facility] ABS. NEUTROPHILS TOTAL 6.28 1.80 - 7.70 x10'3/uL 11/13/2018 11:04 PM CDT [facility] ABS. LYMPHOCYTES 1.84 1.00 - 4.80 x10'3/uL 11/13/2018 11:04 PM CDT [facility] ABS. MONOCYTES 1.29(H) 0.24 - 0.86 x10'3/uL 11/13/2018 11:04 PM CDT [facility] ABS. EOSINOPHILS 0.05 0.04 - 0.36 x10'3/uL 11/13/2018 11:04 PM CDT [facility] ABS. BASOPHILS 0.05 0.01 - 0.08 x10'3/uL 11/13/2018 11:04 PM CDT [facility] ABS. IMMATURE GRANULOCYTES 0.37 0.00 - 0.49 x10'3/uL 11/13/2018 11:04 PM CDT [facility] 11/13/2018 10:4 0 PM CDT us Alexis Theodore MD LABORATORY Final Result [facility] [address] [place] [address], * CULTURE URINE (11/13/2018 10:30 PM CDT) SPEC DESCRIPTION URINE CLEAN CATCH 11/13/2018 11:12 PM CDT [facility] SPECIAL REQUESTS NO SPECIAL REQUEST 11/13/2018 11:12 PM CDT [facility] CULTURE RESULT POLYMICROBIAL GROWTH CONSISTENT WITH NORMAL GENITAL FLORESITA. ?? SUSCEPTIBILITIES NOT ROUTINELY PERFORMED. 11/15/2018 11:15 AM CDT [facility] URINE SPECIMEN OBTAINED BY CLEAN CATCH PROCEDURE / Unknown 11/13/2018 10:30 PM CDT 11/13/2018 11:11 PM CDT Alexis Theodore MD MICROBIOLOGY - GENERAL ORDERA BLES Final Result [facility] [address] [place] [address], [place] [phone] * (ABNORMAL) URINALYSIS WI REFLEX TO CULTURE (11/13/2018 10:30 PM CDT) SPECIMEN TYPE URINE CLEAN CATCH 11/13/2018 10:44 PM CDT [facility] COLOR (U) YELLOW 11/13/2018 11:11 PM CDT [facility] TRANSPARENCY CLOUDY 11/13/2018 11:11 PM CDT [facility] SPECIFIC GRAVITY (U) 1.016 1.001 - 1.030 11/13/2018 11:11 PM CDT [facility] U PH 7.0 5.0 - 9.0 11/13/2018 11:11 PM CDT [facility] LEUKOCYTES (U) TRACE(A) NEGATIVE 11/13/2018 11:11 PM CDT [facility] NITRITES NEGATIVE NEGATIVE 11/13/2018 11:11 PM CDT [facility] PROTEIN (U) NEGATIVE <30 MG/DL 11/13/2018 11:11 PM CDT [facility] URINE GLUCOSE NEGATIVE NEGATIVE MG/DL 11/13/2018 11:11 PM CDT [facility] KETONES MG/DL (U) NEGATIVE NEGATIVE MG/DL 11/13/2018 11:11 PM CDT [facility] UROBILINOGEN 4.0(A) NEGATIVE MG/DL 11/13/2018 11:11 PM CDT [facility] BILIRUBIN (U) NEGATIVE NEGATIVE MG/DL 11/13/2018 11:11 PM CDT [facility] BLOOD (U) NEGATIVE NEGATIVE 11/13/2018 11:11 PM CDT [facility] CULTURE & SENSITIVITY INDICATED? SPECIMEN SETUP FOR CULTURE 11/13/2018 11:11 PM CDT [facility] SQUAMOUS EPITHELIALS MANY /LPF 11/13/2018 11:11 PM CDT [facility] MUCUS RARE /LPF 11/13/2018 11:11 PM CDT [facility] WBC/HPF 1 <6 /HPF 11/13/2018 11:11 PM CDT [facility] RBC/HPF 2 <6 /HPF 11/13/2018 11:11 PM CDT [facility] URINE SPECIMEN OBTAINED BY CLEAN CATCH PROCEDURE / Unknown 11/13/2018 10:30 PM CDT us Alexis Theodore MD URINE ORDERABLES Final Result [facility] [address] [place] [address], * DRUG SCREEN RAPID (11/13/2018 10:30 PM CDT) AMPHETAMINE (U) NEGATIVE NEGATIVE 9 12:11 AM CDT [facility] BARBITURATES SCREEN (U) NEGATIVE NEGATIVE 11/14/2018 12:11 AM CDT [facility] BENZODIAZEPINES SCREEN (U) NEGATIVE NEGATIVE 11/14/2018 12:11 AM CDT [facility] CANNABINOIDS SCREEN (U) NEGATIVE NEGATIVE 11/14/2018 12:11 AM CDT [facility] COCAINE METABOLITES (U) NEGATIVE NEGATIVE 11/14/2018 12:11 AM CDT [facility] METHADONE (U) NEGATIVE NEGATIVE 11/14/2018 12:11 AM T [facility] OPIATE SCREEN (U) NEGATIVE NEGATIVE 019 12:11 AM T [facility] PHENCYCLIDINE PCP (U) NEGATIVE NEGATIVE 11/14/2018 12:11 AM T [facility] Comment: NOTE: RESULTS OF THIS DRUG SCREEN SHOULD BE USED FOR MEDICAL PURPOSES ONLY AND NOT FOR LEGAL OR EMPLOYMENT PURPOSES. POSITIVE RESULTS ARE NOT CONFIRMED. MEDICATIONS CONTAINING EPHEDRINE MAY CAUSE FALSE POSITIVE AMPHETAMINE CALL 2119, LAB, TO REQUEST CONFIRMATION TESTING. IF CREATININE IS <40 mg/dL. ??RECOLLECTION IS SUGGESTED. AMPHETAMINE- ?500 NG/ML BARBITURATE- ?200 NG/ML BENZODIAZEPINES- ??200 NG/ML THC- ? 50 NG/ML COCAINE- ?150 NG/ML METHADONE- ?300 NG/ML OPIATE- ? 300 MG/ML PCP- ? 25 NG/ML CREATININE (U) 111.0 28 - 217 MG/DL 11/14/2018 12:11 AM T [facility] Urine specimen (specimen) URINE SPECIMEN / Unknown 11/13/2018 10:30 PM CDT Alexis Theodore MD URINE ORDERABLES Final Result [facility] [address] [place] [address], * OBSTETRIC PANEL (11/13/2018) HEPATITIS B SURFACE AG NON-REACTI VE Doc [facility] Final Result * OBSTETRIC PANEL (08/24/2018) SYPHILIS IGG AB NON REACTIVE Comment:08/22/18 us Doc [facility] Final Result * HIV 1 ANTIGEN(S), WITH HIV-1 AND HIV-2 ANTIBODIES (08/24/2018) HIV 1/2 AB+ HIV1 P24 AG NON REACTIVE Comment:08/22/18 us Doc [facility] Final Result * OBSTETRIC PANEL (05/11/2018) Pathologist [facility] HGB 32.8 HCT 11.1 RUBELLA IGG AB IMMUNE SYPHILIS IGG AB NON-REACTIV E us Doc [facility] Final Result * HIV 1 ANTIGEN(S), WITH HIV-1 AND HIV-2 ANTIBODIES (05/11/2018) Pathologist [facility] HIV 1/2 AB+ HIV1 P24 AG NON-REACTI VE us Doc [facility] Final Result documented in this encounter Visit Diagnoses Diagnosis (HHS/HCC) state, incidental documented in this encounter Administered Medications Inactive Administered Medications - up to 3 most recent administrations Medication Order MAR Action Action Date Dose Rate Site acetaminophen (TYLENOL) tablet 650 mg 650 mg, Oral, Every 4 hours PRN, Mild pain (Scale 1 - 3), Starting on Wed11/14/18 at 1126, Until Wed11/16/18 at 1400, Administer as analgesic choice number 2 Given 11/14/2018 7:34 PM CDT 650 mg butorphanol (STADOL) injection 1 mg 1 mg, Intravenous, Every 4 hours PRN, Moderate pain (Scale 4 - 7), Starting on Wed11/13/18 at 2241, Until Wed11/14/18 at 1126 Given 11/14/2018 12:15 AM CDT 1 mg diphenhydrAMINE (BENADRYL) 12.5 MG/5ML elixir 25 mg 25 mg, Oral, Every 6 hours PRN, Itching, Starting on Wed11/14/18 at 1126, Until Wed11/16/18 at 1400, Give if unable to swallow tablets/capsules or if patient prefers liquid. diphenhydrAMINE (BENADRYL) capsule 25 mg 25 mg, Oral, Every 6 hours PRN, Itching, Starting on Wed11/14/18 at 1126, Until Wed11/16/18 at 1400 diphenhydrAMINE (BENADRYL) injection 25 mg 25 mg, Intravenous, Every 6 hours PRN, Itching, Starting on Wed11/14/18 at 1126, Until Wed11/16/18 at 1400, Give if unable to take PO. For IV administration, give no faster than 25 mg/min. docusate sodium (COLACE) capsule 100 mg 100 mg, Oral, 3 times daily with meals, First dose on Wed11/14/18 at 1200, Until Discontinued Given 11/16/2018 8:20 AM CDT 100 mg Given 11/15/2018 5:07 PM CDT 100 mg Given 11/15/2018 7:45 AM CDT 100 mg ferrous sulfate EC tablet 324 mg 324 mg, Oral, 2 times daily with meals, First dose on Wed11/15/18 at 1700, Until Discontinued, Give 2 hours before or 4 hours after antacids. Do not break, chew, or crush. Given 11/16/2018 8:2 0 AM CDT 324 mg Given 11/15/2018 5:07 PM CDT 324 mg hydrocodone-acetaminophen (NORCO) 5-325 MG tablet 0.5-1 tablet 0.5-1 tablet, Oral, Every 4 hours PRN, Moderate pain (Scale 4 - 7), Starting on Wed11/14/18 at 1126, Until Wed11/16/18 at 1400, Maximum dose of acetaminophen is 4000 mg from all sources in 24 hours., HALF TAB MODERATE PAIN, 1 TAB SEVERE PAIN Given 11/16/2018 3:09 AM CDT 1 tablet Given 11/15/2018 9:51 PM CDT 1 tablet Given 11/15/2018 5:07 PM CDT 1 tablet ibuprofen (MOTRIN) tablet 600 mg 600 mg, Oral, Every 6 hours PRN, Mild pain (Scale 1 - 3), Cramping, Starting on Wed11/14/18 at 1126, Until Wed11/16/18 at 1400, Do not order ibuprofen and Vicoprofen (hydrocodone/ibuprofen) together. Given 11/15/2018 9:51 PM CDT 600 mg Given 11/15/2018 3:57 PM CDT 600 mg Given 11/15/2018 10:12 AM CDT 600 mg lactated ringers infusion at 125 mL/hr, Intravenous, Continuous, Starting on Wed11/13/18 at 2300, Until Wed11/14/18 at 1126, For all patients in active labor with non-vertex presentation, multiple gestation, previous , persistent non-reassuring FHR, Hx post- hemorrhage, active phase longer than 8 hrs and/or patient desires an epidural. New 11/14/2018 5:18 AM CDT 125 mL/hr 11/14/2018 3:15 AM CDT 125 mL/hr 11/13/2018 11:37 PM CDT 125 mL/hr oxytocin (PITOCIN) 30 units in NS 500 mL infusion 0-300 mL/hr, Intravenous, Continuous, Starting on Wed11/13/18 at 2300, Until Wed11/14/18 at 1126, Initiate during third stage of labor, timing to be determined by delivering provider. Initial rate at 300 ml/hr for the 1st hour, then decrease to 60 mL/hr for the 2nd hour.?? Continue this rate until the fundus is firm or the patient has completed her recovery phase. For uterine atony, increase oxytocin infusion to 600 ml/hr (36 units/hr) for one hour then decrease HAZARDOUS MEDICATION New 11/14/2018 6:25 AM CDT 300 mL/hr 300 mL/hr penicillin G potassium 2.5 Million Units in sodium chloride 0.9 % 50 mL IVPB 2.5 Million Units, Intravenous, at 100 mL/hr, Every 4 hours, First dose on Wed11/14/18 at 0300, Until Discontinued, Until delivery New 11/14/2018 3:40 AM CDT 2.5 Million Units 100 mL/hr penicillin G potassium 5 Million Units in sodium chloride 0.9 % 50 mL IVPB 5 Million Units, Intravenous, at 100 mL/hr, Once, 1 dose, On Wed11/13/18 at 2315 11/13/2018 11:36 PM CDT 5 Million Units 100 mL/hr vitamin (low iron) 27-0.8 MG tablet 1 tablet 1 tablet, Oral, Daily, First dose on Wed11/14/18 at 1145, Until Discontinued Given 11/16/2018 8:20 AM CDT 1 tablet Given 11/15/2018 7:45 AM CDT 1 tablet Given 11/14/2018 11:54 AM CDT 1 tablet documented in this encounter Active and Recently Administered Medications Times are shown in CDT. Scheduled Medication Order 11/14/2018 11/15/2018 11/16/2018 docusate sodium (COLACE) capsule 100 mg 100 mg, Oral, 3 times daily with meals, First dose on Wed11/14/18 at 1200, Until Discontinued 1154 (Given - Provider: Genesis Andrade, CHIDI)1720 (Given - Provider: Carrington Donovan RN) 0745 (Given - Provider: Carrington Donovan RN)1200 (Not Given - Provider: Carrington Donovan RN - Reason: Patient/family declined)1707 (Given - Provider: Carrington Donovan RN) 0820 (Given - Provider: Mar Mcdaniel RN)1200 (Canceled Entry - Provider: Automatic Discharge Provider - Comment: Automatically canceled at discontinue of medication order) ferrous sulfate EC tablet 324 mg 324 mg, Oral, 2 times daily with meals, First dose on Wed11/15/18 at 1700, Until Discontinued, Give 2 hours before or 4 hours after antacids. Do not break, chew, or crush. 1707 (Given - Provider: Carirngton Donovan RN) 0820 (Given - Provider: Mar Mcdaniel RN) penicillin G potassium 2.5 Million Units in sodium chloride 0.9 % 50 mL IVPB (CANCELED)(Linked Group 1) 2.5 Million Units, Intravenous, at 100 mL/hr, Every 4 hours, First dose on Wed11/14/18 at 0300, Until Discontinued, Until delivery 0340 (New Bag - Provider: Mónica Nicole RN)0410 (Infusion Stop Time - Provider: Mónica Nicole RN)0700 (Due)1100 (Hold - Provider: Genesis Andrade RN - Reason: Contraindicated - Comment: DELIVERED PT.) vitamin (low iron) 27-0.8 MG tablet 1 tablet 1 tablet, Oral, Daily, First dose on Wed11/14/18 at 1145, Until Discontinued 1154 (Given - Provider: Genesis Andrade RN) 0745 (Given - Provider: Carrington Donovan RN) 0820 (Given - Provider: Mar Mcdaniel RN) Continuous Medication Order 11/14/2018 11/15/2018 11/16/2018 lactated ringers infusion (CANCELED) at 125 mL/hr, Intravenous, Continuous, Starting on Wed11/13/18 at 2300, Until Wed11/14/18 at 1126, For all patients in active labor with non-vertex presentation, multiple gestation, previous , persistent non-reassuring FHR, Hx post- hemorrhage, active phase longer than 8 hrs and/or patient desires an epidural. 0315 (New Bag - Provider: Mónica Nicole RN)0518 (New Bag - Provider: Mónica Nicole RN)0730 (Infusion Stop Time - Provider: Genesis Andrade RN - Comment: PT SALINE LOCKED AND FLUIDS NOT RUNNING AT THIS TIME. INFUSION STOPPED BY PREVIOUS SHIFT AT UNKNOWN TIME.) oxytocin (PITOCIN) 30 units in NS 500 mL infusion (CANCELED) 0-300 mL/hr, Intravenous, Continuous, Starting on Wed11/13/18 at 2300, Until Wed11/14/18 at 1126, Initiate during third stage of labor, timing to be determined by delivering provider. Initial rate at 300 ml/hr for the 1st hour, then decrease to 60 mL/hr for the 2nd hour.?? Continue this rate until the fundus is firm or the patient has completed her recovery phase. For uterine atony, increase oxytocin infusion to 600 ml/hr (36 units/hr) for one hour then decrease HAZARDOUS MEDICATION 0625 (New Bag - Provider: Mónica Nicole RN)0730 (Infusion Stop Time - Provider: Genesis Adnrade RN - Comment: PT SALINE LOCKED AND FLUIDS NOT RUNNING AT THIS TIME. INFUSION STOPPED BY PREVIOUS SHIFT AT UNKNOWN TIME.) PRN Medication Order 11/14/2018 11/15/2018 11/16/2018 acetaminophen (TYLENOL) tablet 650 mg 650 mg, Oral, Every 4 hours PRN, Mild pain (Scale 1 - 3), Starting on Wed11/14/18 at 1126, Until Wed11/16/18 at 1400, Administer as analgesic choice number 2 1934 (Given - Provider: Ely Da Silva RN) benzocaine-menthol (DERMOPLAST) 20-0.5 % topical spray 1 spray 1 spray, Topical, PRN, Pain, Perineal discomfort, Starting on Wed11/14/18 at 1126, Until Wed11/16/18 at 1400, Do NOT recommend use for pain in infants & children under 2 years. bisacodyl (DULCOLAX) suppository 10 mg 10 mg, Rectal, Daily as needed, Constipation, do not give if 3rd or 4th degree laceration, Starting on Wed11/14/18 at 1126, Until Wed11/16/18 at 1400 butorphanol (STADOL) injection 1 mg (CANCELED) 1 mg, Intravenous, Every 4 hours PRN, Moderate pain (Scale 4 - 7), Starting on Wed11/13/18 at 2241, Until Wed11/14/18 at 1126 0015 (Given - Provider: Yelitza Reyez RN) dibucaine (NUPERCAINAL) ointment Topical, PRN, Other, Rectal discomfort, Starting on Wed11/14/18 at 1126, Until Wed11/16/18 at 1400 diphenhydrAMINE (BENADRYL) 12.5 MG/5ML elixir 25 mg(Linked Group 2) 25 mg, Oral, Every 6 hours PRN, Itching, Starting on Wed11/14/18 at 1126, Until Wed11/16/18 at 1400, Give if unable to swallow tablets/capsules or if patient prefers liquid. diphenhydrAMINE (BENADRYL) capsule 25 mg(Linked Group 2) 25 mg, Oral, Every 6 hours PRN, Itching, Starting on Wed11/14/18 at 1126, Until Wed11/16/18 at 1400 diphenhydrAMINE (BENADRYL) injection 25 mg(Linked Group 2) 25 mg, Intravenous, Every 6 hours PRN, Itching, Starting on Wed11/14/18 at 1126, Until Wed11/16/18 at 1400, Give if unable to take PO. For IV administration, give no faster than 25 mg/min. hydrocodone-acetaminophen (NORCO) 5-325 MG tablet 0.5-1 tablet 0.5-1 tablet, Oral, Every 4 hours PRN, Moderate pain (Scale 4 - 7), Starting on Wed11/14/18 at 1126, Until Wed11/16/18 at 1400, Maximum dose of acetaminophen is 4000 mg from all sources in 24 hours., HALF TAB MODERATE PAIN, 1 TAB SEVERE PAIN 2305 (Given - Provider: Ely Da Silva RN) 0253 (Given - Provider: Ely Da Silva RN)1013 (Given - Provider: Constance Johnson RN)1707 (Given - Provider: Carrington Donovan RN)2151 (Given - Provider: Ely Da Silva RN) 0309 (Given - Provider: Amira Beckwith RN) hydrocortisone (ANUSOL-HC) suppository 25 mg 25 mg, Rectal, 2 times daily PRN, Hemorrhoids, Do not give if 3rd or 4th degree laceration., Starting on Wed11/14/18 at 1126, Until Wed11/16/18 at 1400 ibuprofen (MOTRIN) tablet 600 mg 600 mg, Oral, Every 6 hours PRN, Mild pain (Scale 1 - 3), Cramping, Starting on Wed11/14/18 at 1126, Until Wed11/16/18 at 1400, Do not order ibuprofen and Vicoprofen (hydrocodone/ibuprofen) together. 1413 (Given - Provider: Carrington Donovan RN)1934 (Given - Provider: Ely Da Silva RN) 0252 (Given - Provider: Ely Da Silva RN)1012 (Given - Provider: Constance Johnson, CHIDI)1557 (Given - Provider: Carrington Donovan RN)215 (Given - Provider: Ely Da Silva RN) magnesium hydroxide (MILK OF MAGNESIA) 400 MG/5ML suspension 30 mL 30 mL, Oral, Daily as needed, Constipation, Starting on Wed11/14/18 at 1126, Until Wed11/16/18 at 1400, Shake Well ondansetron (ZOFRAN) injection 4 mg 4 mg, Intravenous, Every 6 hours PRN, Nausea, Vomiting, Starting on Wed11/14/18 at 1126, Until Wed11/16/18 at 1400, Use IV if patient unable to take oral order for ondansetron ondansetron (ZOFRAN-ODT) disintegrating tablet 8 mg 8 mg, Oral, Every 8 hours PRN, Nausea, Vomiting, Starting on 11/14/18 at 1126, Until Wed11/16/18 at 1400 saline (FLEET) adult 7-19 GM/118ML enema 1 enema 1 enema, Rectal, Daily as needed, Constipation, do not give if 3rd or 4th degree laceration, Starting on Wed11/14/18 at 1126, Until Wed11/16/18 at 1400 Linked Groups Order Group 1: penicillin G potassium 5 Million Units in sodium chloride 0.9 % 50 mL IVPB (COMPLETED) 5 Million Units, Intravenous, at 100 mL/hr, Once, 1 dose, On Wed11/13/18 at 2315 Followed by penicillin G potassium 2.5 Million Units in sodium chloride 0.9 % 50 mL IVPB (CANCELED)Jump to med 2.5 Million Units, Intravenous, at 100 mL/hr, Every 4 hours, First dose on Wed11/14/18 at 0300, Until Discontinued, Until delivery Group 2: diphenhydrAMINE (BENADRYL) injection 25 mgJump to med 25 mg, Intravenous, Every 6 hours PRN, Itching, Starting on Wed11/14/18 at 1126, Until Wed11/16/18 at 1400, Give if unable to take PO. For IV administration, give no faster than 25 mg/min. Or diphenhydrAMINE (BENADRYL) capsule 25 mgJump to med 25 mg, Oral, Every 6 hours PRN, Itching, Starting on Wed11/14/18 at 1126, Until Wed11/16/18 at 1400 Or diphenhydrAMINE (BENADRYL) 12.5 MG/5ML elixir 25 mgJump to med 25 mg, Oral, Every 6 hours PRN, Itching, Starting on Wed11/14/18 at 1126, Until Wed11/16/18 at 1400, Give if unable to swallow tablets/capsules or if patient prefers liquid. documented in this encounter Care Teams Tourist Cabin Keeper Relationship Specialty Start Date End Date None, Provider, PCP - General 06/08/18 documented as of this encounter
--- OUTSIDE RECORDS SUMMARY | 2024-06-02 12:34 | XMS_ITS | Clinical Summary ---
Author Organization [facility] Address [address] [place] [address]. 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
--- OUTSIDE RECORDS SUMMARY | 2024-06-02 12:34 | XMS_ITS | Encounter Summary ---
Author Organization [facility] Address [address] [place] [address]. [place] [address] [place] [address] Care Team Providers Care Maintenance Controller Name Role Phone None, Provider MD Primary Care Provider Unavaila ble Reason for Referral * Imaging (Emergency) - Closed Specialty Diagnoses / Procedures Referred By Dakota salazar Referred To Contact RADIOLOGY Procedures US PELVIC NON OB COMP TA US PELVIC NON OB COMP TV Jeff Douglas MD [address] [address] Phone: tel: fax: Referral ID Status Reason Start Date Expiration Date Visits Re quested Visits Authorized [id number] Closed 12/21/2018 01/22/2020 1 1 Reason for Visit * Reason Comments Vaginal Bleeding Encounter Details Date Type Department Care Team (Late st Contact Info) Description 12/21/2018 11:52 AM CDT - 12/21/2018 5:46 PM CDT Emergency [facility] Emergency Room [address] [place], [place] [id number] Jeff Douglas MD [address] [id number] Vaginal Bleeding Discharge Disposition: Home or Self [...] on file 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 * Heavy Periods Discharge Instructions (Gabonese) documented in this encounter Medications at Time [...] PM CDT Pt returned from [place] * Carol Barriga RN - 12/21/2018 3:10 PM CDT [...] resolved. She otherwise feels well. Followed by [place]. Medical History ALLERGIES: No Known Allergies MEDICATIONS: [...] OB COMP TA Final Result by User, [email or web address] (12/22 1627) EXAMINATION: US PELVIC NON OB [...] Case d/w Dr. Espinal who recommended cytotec [place] x 1 and 2 day course of methergine. Plan for followup as an outpatient. Clinical Impression Vaginal bleeding (Primary) Disposition: Discharge Jeff Douglas MD 12/23/18 1948 * TAVO Mir - 12/21/2018 11:59 AM CDT [place], [place] EMERGENCY DEPARTMENT ENCOUNTER Medical Screening Examination 12/21/18 12:00 PM Chief Complaint : Vaginal Bleeding HPI : Socorro Blue is a 23-year-old female who presents vaginal bleeding x 2 days ago. Now soaking approx 1 pad /hr. Had vaginal , no complications 5 weeks ago. Denies any abdominal pain, lightheadedness, syncope or SOB. LICENSED CLINICAL PSYCHOLOGIST [facility] Vital Signs: Filed Vitals: 12/21/18 1152 BP: [...] By: Ted Butcher MD, 12/21/2018 4:20 PM Narrative 12/21/2018 4:27 [...] ADDED TO REPORT 12/22/2018 6:49 PM CDT [facility] Comment: [id number]. NORMOCYTIC NORMOCHROMIC ANEMIA. ??THIS MAY BE CAUSED BY MULTIPLE ETIOLOGIES WHICH INCLUDE HEMOLYTIC ANEMIA, ACUTE BLOOD LOSS OR CHRONIC DISEASES. ?? ABSOLUTE NEUTROPENIA. ??MAY BE SEEN IN SOME INFECTIONS (ie. TYPHOID, BRUCELLOSIS, VIRAL DISORDER), CHEMICAL, DRUGS AND DEBILITATING STATES. PLATELETS UNREMARKABLE. REVIEWED BY TULIO DE JESUS M.D., PATHOLOGIST. 12/21/2018 12:1 5 PM CDT Mandy VO PATHOLOGY/CYTOLOGY ORDERABLES Final Result [facility] [address] [place] [address], [place] [phone] * TYPE & SCREEN (12/21/2018 12:15 PM CDT) ABO/RH AB POSITIVE 12/21/2018 1:47 PM CDT [facility] ANTIBODY SCREEN NEGATIVE 12/21/2018 1:47 PM CDT [facility] SAMPLE EXPIRATION 12/24/2018 12/21/2018 1:47 PM CDT [facility] 12/21/2018 12:1 5 PM CDT Mandy VO BLOOD BANK TEST ORDERABLES Fi nal Result Performing Organization Address City/[facility] Co de Phone Number [facility] [address] [place] [address], [place] [phone] * PROTIME/INR, VENOUS (12/21/2018 12:15 PM CDT) PROTIME 11.7 9.6 - 12.2 SEC 12/21/2018 12:52 PM CDT [facility] INR 1.1 12/21/2018 12:52 PM CDT [facility] Comment: Recommended INR Therapeutic Goals: ??2.0-3.0 Routine Therapy ??2.5-3.5 Mechanical Prosthetic Valves (High Risk) ??3.0-4.0 Acute [place] (to prevent Systemic Embolism) The INR is used only for patients on stable oral anticoagulant therapy. It makes no significant contribution to the diagnosis or treatment of patients whose Protime is prolonged for other reasons. 12/21/2018 12:1 5 PM CDT Mandy VO LABORATORY Final Result Performing Organization Address [facility] Co de Phone Number [facility] [address] [place] [address], [place] [phone] * PARTIAL THROMBOPLASTIN TIME,PTT (12/21/2018 12:15 PM CDT) PTT 29.6 25.5 - 37.6 SEC 12/21/2018 12:52 PM CDT [facility] 12/21/2018 12:1 5 PM CDT Mandy VO LABORATORY Final Result Performing Organization Address [facility] Co de Phone Number [facility] [address] [place] [address], [place] [phone] * (ABNORMAL) COMPREHENSIVE METABOLIC PANEL (12/21/2018 12:15 PM CDT) [facility] GLUCOSE 87 70 - 99 MG/DL 12/21/2018 12:54 PM CDT [facility] BUN 7 7 - 18 MG/DL 12/21/2018 12:54 PM CDT [facility] CREATININE S/P/B 0.65 0.55 - 1.02 MG/DL 12/21/2018 12:54 PM CDT [facility] SODIUM S/P/B 142 136 - 145 MMOL/L 12/21/2018 12:54 PM CDT [facility] POTASSIUM S/P/B 3.5 3.5 - 5.1 MMOL/L 12/21/2018 12:54 PM CDT [facility] CHLORIDE S/P/B 109(H) 100 - 108 MMOL/L 12/21/2018 12:54 PM CDT [facility] CO2 25.5 21 - 32 MMOL/L 12/21/2018 12:54 PM CDT [facility] CALCIUM S/P/B 8.7 8.5 - 10.1 MG/DL 12/21/2018 12:54 PM CDT [facility] BILIRUBIN TOTAL S/P/B 0.4 0.2 - 1.2 MG/DL 12/21/2018 12:54 PM CDT [facility] TOTAL PROTEIN S/P/B 6.9 6.4 - 8.2 G/DL 12/21/2018 12:54 PM CDT [facility] ALBUMIN S/P/B 3.6 3.4 - 5.0 G/DL 12/21/2018 12:54 PM CDT [facility] AST 12(L) 15 - 37 U/L 12/21/2018 12:54 PM CDT [facility] ALT 22 14 - 55 U/L 12/21/2018 12:54 PM CDT [facility] ALKALINE PHOSPHATASE S/P/B 80 50 - 136 U/L 12/21/2018 12:54 PM CDT [facility] ANION GAP 7.5 5 - 15 MMOL/L 12/21/2018 12:54 PM CDT [facility] BUN CREATININE RATIO 10.8 6 - 26 12/21/2018 12:54 PM CDT [facility] A/G RATIO 1.1 1.0 - 2.0 RATIO 12/21/2018 12:54 PM CDT [facility] EGFR NON-AFR. AMER. >90 >90 ML/MIN/1.7 3 M2 12/21/2018 12:54 PM CDT [facility] EGFR AFR. AMER. >90 >90 ML/MIN/1.7 3 M2 12/21/2018 12:54 PM CDT [facility] Comment: NOTE: eGFR is not calculated for patients <18 years of age. This is an estimated GFR (CKD EPI) and should not be used for calculating drug doses. 12/21/2018 12:1 5 PM CDT us Mandy VO LABORATORY Final Result [facility] [address] [place] [address], [place] [phone] * (ABNORMAL) CBC W/DIFF AUTOMATED (12/21/2018 12:15 PM CDT) WBC 3.4(L) 4.5 - 11.0 x10'3/uL 12/21/2018 12:29 PM CDT [facility] RBC 4.13(L) 4.20 - 5.40 x10'6/uL 12/21/2018 12:29 PM CDT [facility] HGB 11.2(L) 12.0 - 16.0 G/DL 12/21/2018 12:29 PM CDT [facility] HCT 35.3(L) 38.0 - 48.0 % 12/21/2018 12:29 PM CDT [facility] MCV 85.5 80.0 - 94.0 FL 12/21/2018 12:29 PM CDT [facility] MCH 27.1 27.0 - 31.0 PG 12/21/2018 12:29 PM CDT [facility] MCHC 31.7(L) 32.0 - 36.0 G/DL 12/21/2018 12:29 PM CDT [facility] RDW 12.0 11.5 - 14.5 % 12/21/2018 12:29 PM CDT [facility] PLT 272 130 - 400 x10'3/uL 12/21/2018 12:29 PM CDT [facility] MPV 8.5(L) 9.3 - 12.2 FL 12/21/2018 12:29 PM CDT [facility] DIFFERENTIAL TYPE MANUAL DIFFERENTIAL 12/21/2018 12:52 PM T [facility] SEG NEUTROPHILS 31 % 9 12:52 PM CDT [facility] LYMPHOCYTES 51 % 12/21/2018 12:52 PM CDT [facility] MONOCYTES 3 % 12/21/2018 12:52 PM CDT [facility] EOSINOPHILS 14 % 12/21/2018 12:52 PM CDT [facility] BASOPHILS 1 % 12/21/2018 12:52 PM CDT [facility] ABS. NEUTROPHILS CALCULATED 1.05(L) 1.80 - 7.70 x10'3/uL 12/21/2018 12:52 PM CDT [facility] ABS.LYMPHOCYTES CALCULATED 1.73 1.00 - 4.80 x10'3/uL 12/21/2018 12:52 PM CDT [facility] ABS. MONOCYTES CALCULATED 0.10(L) 0.24 - 0.86 x10'3/uL 12/21/2018 12:52 PM CDT [facility] ABS. EOSINOPHIL CALCULATED 0.48(H) 0.04 - 0.36 x10'3/uL 12/21/2018 12:52 PM CDT [facility] ABS. BASOPHIL CALCULATED 0.03 0.01 - 0.08 x10'3/uL 12/21/2018 12:52 PM CDT [facility] RBC MORPHOLOGY RBC MORPHOLOGY APPEARS NORMAL. SLIDE REVIEWED. 12/21/2018 12:52 PM CDT [facility] PLT EST. ADEQUATE 12/21/2018 12:52 PM CDT [facility] PATHOLOGIST COMMENT PATHOLOGIST REVIEW TO FOLLOW. 12/21/2018 12:52 PM CDT [facility] 12/21/2018 12:1 5 PM CDT us Mandy VO LABORATORY Final Result [facility] [address] [place] [address], documented in this encounter Visit Diagnoses Diagnosis [...] RN) documented in this encounter Care Teams Maintenance Controller Relationship Specialty Start Date End Date None, Provider, MD PCP - General 06/08/18 documented as of this encounter
--- OUTSIDE RECORDS SUMMARY | 2024-06-02 12:34 | XMS_ITS | Encounter Summary ---
Author Organization [facility] Address [address] [place] [address]. [place] [address] [place] [address] Care Team Providers Care Visual Merchandise Manager Name Role Phone None, Provider MD Primary Care Provider Unavaila ble Reason for Visit * Auth/Cert Specialty Diagnoses / Procedures Referred By Dakota salazar Referred To Contact Diagnoses Procedures INPT Referral ID Status Reason Start Date Expiration Date Visits Re quested Visits Authorized [id number] 1 1 Encounter Details Date Type Department Care Team (Late Contact Info) Description 11/14/2018 2:12 AM CDT Anesthesia Event [facility] Labor & Delivery [facility] [place] [address] Matt Dorsey CRNA [address] [facility] [address] [address] Anesthesia Record Procedure Summary Procedure Name Responsible Anesthesiologist Anesthesia Start Time Anesthesia Stop Time LABOR EPIDURAL Events Date Time Event Comment 11/14/2018 0213 0213 AN AIR BRAKES INSPECTOR Prepped 0219 Floor Procedure 022 Epidural Start 618 An Epidural Placement Comple te Meds Name Total lidocaine (PF) 1% injection 30 mg lidocaine 2%-EPINEPHrine 1:200,000 injec tion 3 mL fentaNYL (SUBLIMAZE) 100 mcg/2 mL inject ion 100 mcg fentaNYL 2 mcg/mL-BUpivacaine 0.125 % ep idural 150 mL cassette 583,895.62 mL * Agents No agents on file. 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 Gender Identity Not on file Sexual Orientation [...] Compatible: B Castrejon Perifix tray Ref # [id number] Needle type: Tuohy Needle gauge: 17 G [...] Compatible: B Castrejon Perifix tray Ref # [id number] Needle type: Tuohy Needle gauge: 17 G [...] 2:24 AM CDT 30 mg lidocaine-EPINEPHrine 2 %-1:864313 injection PRN, Starting on Wed11/14/18 at 0229, Until Wed11/15/18 at 0829, Anesthesia Intra-Op Given 11/14/2018 2:29 AM CDT 3 mLs documented in this encounter Care Teams Visual Merchandise Manager Relationship Specialty Start Date End Date None, Provider, PCP - General 06/08/18 documented as of this encounter
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
--- OUTSIDE RECORDS SUMMARY | 2024-06-02 12:34 | XMS_ITS | Encounter Summary ---
Author Organization [facility] Address [address] [place] [address]. [place] [address] [place] [address] Care Team Providers Care Customer Support Executive Name Role Phone None, Provider Primary Care Provider Unavaila ble Reason for Visit * Reason Comments IOL-ELECTIVE * Auth/Cert Specialty Diagnoses / Procedures Referred By Dakota t Referred To Contact Diagnoses Procedures INPT Referral ID Status Reason Start Date Expiration Date Visits Re quested Visits Authorized [id number] 1 1 Encounter Details Date Type Department Care Team (Latest Contact Info) Description 11/13/2018 10:05 PM CDT - 11/16/2018 11:45 AM CDT Hospital Encounter [facility] [address] [place], [place] [id number] Alexis Theodore MD [address] [place], [place] [address] (IOL-ELECTIVE) Discharge Disposition: Home or Self Care [...] on file 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 docusate sodium 100 MG capsule ?? ferrous sulfate EC 324 (65 Fe) MG tablet ?? ibuprofen 600 MG tablet MAXINE CABALLERO CNM documented in this encounter Discharge Instructions * Attachments The following attachments cannot be sent through Care Everywhere. * Vaginal Delivery Discharge Instructions (Dominican) * What to Watch for After You Have a Baby (Dominican) documented in this encounter Medications at Time [...] G1 [facility] and presents with complaints of cramping [...] laterto progress and hope for vaginal delivery. #[id number] /NTS documented in this encounter Procedure Notes * Alexis Theodore MD - 11/14/2018 12:00 AM CDT The patient is a 23-year-old G1, now P1, who presented with term induction at 39 weeks. She arrivedat [place] at approximately 10:00 p.m. [...] Estimated blood loss in delivery 300 mL. #[id number] /NTS documented in this encounter Plan of [...] - 11.0 x10'3/uL 11/15/2018 6:41 AM CDT [facility] RBC 3.29(L) 4.20 - 5.40 x10'6/uL 11/15/2018 6:41 AM CDT [facility] HGB 9.1(L) 12.0 - 16.0 G/DL 11/15/2018 6:41 AM CDT [facility] HCT 29.4(L) 38.0 - 48.0 % 11/15/2018 6:41 AM CDT [facility] MCV 89.4 80.0 - 94.0 FL 11/15/2018 6:41 AM CDT [facility] MCH 27.7 27.0 - 31.0 PG 11/15/2018 6:41 AM CDT [facility] MCHC 31.0(L) 32.0 - 36.0 G/DL 11/15/2018 6:41 AM CDT [facility] RDW 13.2 11.5 - 14.5 % 11/15/2018 6:41 AM CDT [facility] PLT 255 130 - 400 x10'3/uL 11/15/2018 6:41 AM T [facility] MPV 9.0(L) 9.3 - 12.2 FL 11/15/2018 6:41 AM T [facility] DIFFERENTIAL TYPE MANUAL DIFFERENTIAL 11/15/2018 7:57 AM CDT [facility] SEG NEUTROPHILS 70 % 9 7:57 AM CDT [facility] LYMPHOCYTES 17 % 11/15/2018 7:57 AM T [facility] MONOCYTES 8 % 11/15/2018 7:57 AM T [facility] EOSINOPHILS 3 % 11/15/2018 7:57 AM CDT [facility] BANDS 1 % 11/15/2018 7:57 AM CDT [facility] MYELOCYTES 1 % 11/15/2018 7:57 AM T [facility] ABS. NEUTROPHILS CALCULATED 9.09(H) 1.80 - 7.70 x10'3/uL 11/15/2018 7:57 AM T [facility] ABS.LYMPHOCYTES CALCULATED 2.18 1.00 - 4.80 x10'3/uL 11/15/2018 7:57 AM CDT [facility] ABS. MONOCYTES CALCULATED 1.02(H) 0.24 - 0.86 x10'3/uL 11/15/2018 7:57 AM CDT [facility] ABS. EOSINOPHIL CALCULATED 0.38(H) 0.04 - 0.36 x10'3/uL 11/15/2018 7:57 AM T [facility] ABS. MYELOCYTES 0.13(H) 0.00 x10'3/uL 11/15/2018 7:57 AM CDT [facility] RBC MORPHOLOGY RBC MORPHOLOGY APPEARS NORMAL. SLIDE REVIEWED. 11/15/2018 7:57 AM CDT [facility] PLT EST. ADEQUATE 11/15/2018 7:57 AM CDT [facility] 11/15/2018 4:36 AM CDT us Alexis Theodore MD LABORATORY Final Result Performing Organization Address [facility] Co de Phone Number [facility] [address] [place] [address], [place] [phone] * TYPE & SCREEN (11/13/2018 10:42 PM CDT) ABO/RH AB POSITIVE 11/13/2018 11:56 PM CDT [facility] ANTIBODY SCREEN NEGATIVE 11/13/2018 11:56 PM CDT [facility] SAMPLE EXPIRATION 11/16/2018 11/13/2018 11:56 PM CDT [facility] 11/13/2018 10:4 2 PM CDT us Alexis Theodore MD BLOOD BANK TEST ORDERABLES Fi nal Result Performing Organization Address City/[facility]/ZIP Co de Phone Number [facility] [address] [place] [address], [place] [phone] * (ABNORMAL) CBC W/DIFF AUTOMATED (11/13/2018 10:40 PM CDT) WBC 9.9 4.5 - 11.0 x10'3/uL 11/13/2018 11:04 PM CDT [facility] RBC 3.85(L) 4.20 - 5.40 x10'6/uL 11/13/2018 11:04 PM CDT [facility] HGB 10.9(L) 12.0 - 16.0 G/DL 11/13/2018 11:04 PM CDT [facility] HCT 33.9(L) 38.0 - 48.0 % 11/13/2018 11:04 PM CDT [facility] MCV 88.1 81.0 - 99.0 FL 11/13/2018 11:04 PM CDT [facility] MCH 28.3 27.0 - 31.0 PG 11/13/2018 11:04 PM CDT [facility] MCHC 32.2 32.0 - 36.0 G/DL 11/13/2018 11:04 PM CDT [facility] RDW 13.1 11.5 - 14.5 % 11/13/2018 11:04 PM CDT [facility] PLT 327 130 - 400 x10'3/uL 11/13/2018 11:04 PM CDT [facility] MPV 8.8(L) 9.3 - 12.2 FL 11/13/2018 11:04 PM CDT [facility] DIFFERENTIAL TYPE AUTOMATED DIFFERENTIAL 11/13/2018 11:04 PM CDT [facility] NEUTROPHILS % 63.6 % 11/13/2018 11:04 PM CDT [facility] LYMPHOCYTES % 18.6 % 11/13/2018 11:04 PM CDT [facility] MONOCYTES % 13.1 % 11/13/2018 11:04 PM CDT [facility] EOSINOPHILS 0.5 % 11/13/2018 11:04 PM CDT [facility] BASOPHILS 0.5 % 11/13/2018 11:04 PM CDT [facility] IMMATURE GRANS % 3.7 % 11/14/19 11:04 PM CDT [facility] ABS. NEUTROPHILS TOTAL 6.28 1.80 - 7.70 x10'3/uL 11/13/2018 11:04 PM CDT [facility] ABS. LYMPHOCYTES 1.84 1.00 - 4.80 x10'3/uL 11/13/2018 11:04 PM CDT [facility] ABS. MONOCYTES 1.29(H) 0.24 - 0.86 x10'3/uL 11/13/2018 11:04 PM CDT [facility] ABS. EOSINOPHILS 0.05 0.04 - 0.36 x10'3/uL 11/13/2018 11:04 PM CDT [facility] ABS. BASOPHILS 0.05 0.01 - 0.08 x10'3/uL 11/13/2018 11:04 PM CDT [facility] ABS. IMMATURE GRANULOCYTES 0.37 0.00 - 0.49 x10'3/uL 11/13/2018 11:04 PM CDT [facility] 11/13/2018 10:4 0 PM CDT us Alexis Theodore MD LABORATORY Final Result [facility] [address] [place] [address], * CULTURE URINE (11/13/2018 10:30 PM CDT) SPEC DESCRIPTION URINE CLEAN CATCH 11/13/2018 11:12 PM CDT [facility] SPECIAL REQUESTS NO SPECIAL REQUEST 11/13/2018 11:12 PM CDT [facility] CULTURE RESULT POLYMICROBIAL GROWTH CONSISTENT WITH NORMAL GENITAL FLORESITA. ?? SUSCEPTIBILITIES NOT ROUTINELY PERFORMED. 11/15/2018 11:15 AM CDT [facility] URINE SPECIMEN OBTAINED BY CLEAN CATCH PROCEDURE / Unknown 11/13/2018 10:30 PM CDT 11/13/2018 11:11 PM CDT Alexis Theodore MD MICROBIOLOGY - GENERAL ORDERA BLES Final Result [facility] [address] [place] [address], [place] [phone] * (ABNORMAL) URINALYSIS WI REFLEX TO CULTURE (11/13/2018 10:30 PM CDT) SPECIMEN TYPE URINE CLEAN CATCH 11/13/2018 10:44 PM CDT [facility] COLOR (U) YELLOW 11/13/2018 11:11 PM CDT [facility] TRANSPARENCY CLOUDY 11/13/2018 11:11 PM CDT [facility] SPECIFIC GRAVITY (U) 1.016 1.001 - 1.030 11/13/2018 11:11 PM CDT [facility] U PH 7.0 5.0 - 9.0 11/13/2018 11:11 PM CDT [facility] LEUKOCYTES (U) TRACE(A) NEGATIVE 11/13/2018 11:11 PM CDT [facility] NITRITES NEGATIVE NEGATIVE 11/13/2018 11:11 PM CDT [facility] PROTEIN (U) NEGATIVE <30 MG/DL 11/13/2018 11:11 PM CDT [facility] URINE GLUCOSE NEGATIVE NEGATIVE MG/DL 11/13/2018 11:11 PM CDT [facility] KETONES MG/DL (U) NEGATIVE NEGATIVE MG/DL 11/13/2018 11:11 PM CDT [facility] UROBILINOGEN 4.0(A) NEGATIVE MG/DL 11/13/2018 11:11 PM CDT [facility] BILIRUBIN (U) NEGATIVE NEGATIVE MG/DL 11/13/2018 11:11 PM CDT [facility] BLOOD (U) NEGATIVE NEGATIVE 11/13/2018 11:11 PM CDT [facility] CULTURE & SENSITIVITY INDICATED? SPECIMEN SETUP FOR CULTURE 11/13/2018 11:11 PM CDT [facility] SQUAMOUS EPITHELIALS MANY /LPF 11/13/2018 11:11 PM CDT [facility] MUCUS RARE /LPF 11/13/2018 11:11 PM CDT [facility] WBC/HPF 1 <6 /HPF 11/13/2018 11:11 PM CDT [facility] RBC/HPF 2 <6 /HPF 11/13/2018 11:11 PM CDT [facility] URINE SPECIMEN OBTAINED BY CLEAN CATCH PROCEDURE / Unknown 11/13/2018 10:30 PM CDT us Alexis Theodore MD URINE ORDERABLES Final Result [facility] [address] [place] [address], * DRUG SCREEN RAPID (11/13/2018 10:30 PM CDT) AMPHETAMINE (U) NEGATIVE NEGATIVE 9 12:11 AM CDT [facility] BARBITURATES SCREEN (U) NEGATIVE NEGATIVE 11/14/2018 12:11 AM CDT [facility] BENZODIAZEPINES SCREEN (U) NEGATIVE NEGATIVE 11/14/2018 12:11 AM CDT [facility] CANNABINOIDS SCREEN (U) NEGATIVE NEGATIVE 11/14/2018 12:11 AM CDT [facility] COCAINE METABOLITES (U) NEGATIVE NEGATIVE 11/14/2018 12:11 AM CDT [facility] METHADONE (U) NEGATIVE NEGATIVE 11/14/2018 12:11 AM T [facility] OPIATE SCREEN (U) NEGATIVE NEGATIVE 019 12:11 AM T [facility] PHENCYCLIDINE PCP (U) NEGATIVE NEGATIVE 11/14/2018 12:11 AM T [facility] Comment: NOTE: RESULTS OF THIS [...] - 217 MG/DL 11/14/2018 12:11 AM T [facility] Urine specimen (specimen) URINE SPECIMEN / Unknown 11/13/2018 10:30 PM CDT Alexis Theodore MD URINE ORDERABLES Final Result [facility] [address] [place] [address], * OBSTETRIC PANEL (11/13/2018) HEPATITIS B SURFACE [...] Final Result * OBSTETRIC PANEL (05/11/2018) Pathologist [facility] HGB 32.8 HCT 11.1 RUBELLA IGG AB IMMUNE SYPHILIS IGG AB NON-REACTIV E us Doc [facility] LABORATORY Final Result * HIV 1 ANTIGEN(S), WITH HIV-1 AND HIV-2 ANTIBODIES (05/11/2018) Pathologist [facility] HIV 1/2 AB+ HIV1 P24 AG NON-REACTI [...] chew, or crush. 1707 (Given - Provider: Carrington Donovan RN) 0820 [...] liquid. documented in this encounter Care Teams Customer Support Executive Relationship Specialty Start Date End Date None, Provider, PCP - General 06/08/18 documented as of this encounter
--- OUTSIDE RECORDS SUMMARY | 2024-06-02 12:34 | XMS_ITS | Encounter Summary ---
Author Organization [facility] Address [address] [place] [address]. 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
== END 2024-05-28 16:11 | disposition home or self-care (01) ==
PROVIDERS: Emergency Provider Registered Nurse
DX: L50.9 Urticaria, unspecified (principal)
CPT/HCPCS: 99283; A9270; J7512